=== PATIENT | male | born 1955 | race Caucasian/White ===

== ENCOUNTER 2017-10-23 21:32 | Emergency (ER) | payer SELFPAY ==
[~2017-10-23] VITALS: Ht 170.2 cm; Wt 84.0 kg
[2017-10-24 01:13] LABS: BASOPHILS % 0.5 % (0.0-2.0); EOSINOPHILS % 0.1 % (0.0-5.0); HEMATOCRIT. 40.2 % (42.0-52.0); HEMOGLOBIN. 13.6 g/dL (14.0-18.0); LYMPHOCYTES % 8.2 % (20.0-50.0); MEAN CORPUSCULAR HEMOGLOBIN 27.8 pg (28.0-32.0); MEAN CORPUSCULAR VOLUME 81.8 fL (80.0-94.0); MEAN PLATELET VOLUME 8.9 fl (7.4-10.4); MONOCYTES % 5.5 % (2.0-8.0); NEUTROPHILS % 85.7 % (40.0-76.0); PLATELET 203 x1000/uL (130-400); RED BLOOD CELL COUNT 4.91 mill/uL (4.7-6.1)
[2017-10-24 01:15] LABS: CHLORIDE 104 mEq/L (98-107)
[2017-10-24 01:18] LABS: PROTHROMBIN TIME 10.8 sec (9.4-11.6)
[2017-10-24 01:19] LABS: ETHANOL BLOOD < 10 mg/dL
[2017-10-24] MEDS ORDERED: SODIUM CHLORIDE 0.9% 1,000 ML IV NR ×2 (01:51)
[2017-10-24] MEDS ORDERED: KETOROLAC 60MG/2ML VIAL IM STA (02:35)
[2017-10-24] MEDS ORDERED: KETOROLAC 30MG/ML VIAL IV STA (02:37)
[2017-10-24 02:52] LABS: CLARITY URINE CLEAR (CLEAR); COLOR URINE YELLOW (YELLOW); KETONES URINE 1+ (NEGATIVE); LEUKOCYTE ESTERASE URINE 1+ (NEGATIVE); NITRITE URINE NEGATIVE (NEGATIVE); OCCULT BLOOD URINE TRACE (NEGATIVE); PH URINE 5.5 (4.5-8.0); PROTEIN URINE TRACE (NEGATIVE); SPECIFIC GRAVITY URINE 1.024 (1.005-1.030)
[2017-10-24 04:34] VITALS: BP 134/76
[2017-10-24] MEDS ORDERED: CEFTRIAXONE 1 G PREMIX 50 ML IV ONE (06:00)
== END 2017-10-24 07:16 | disposition home or self-care (01) ==
LOC: ER 21:32
DX: N39.0 Urinary tract infection, site not specified (principal); R82.71 Bacteriuria; M25.552 Pain in left hip; E11.9 Type 2 diabetes mellitus without complications; Z88.0 Allergy status to penicillin
CPT/HCPCS: 36415; 72100; 76770; 80053; 81003; 83690; 85025; 85610; 87077; 87086; 87186; 96365; 96375; 99285; G0482; J0696; J1885